=== PATIENT | male | born 1980 | race Caucasian/White ===

== ENCOUNTER → 2017-01-17 | Outpatient (CLI) | payer OTHER | LOC: KOH-I 08:07 | DX: M25.511 Pain in right shoulder (principal); M25.512 Pain in left shoulder; Z79.899 Other long term (current) drug therapy | CPT/HCPCS: 73030 ==

== ENCOUNTER 2021-05-17 16:23 | Emergency (ER) | payer OTHER ==
[2021-05-17] MEDS ORDERED: CEPHALEXIN500 M1 PO (17:39)
[2021-05-17] MEDS ORDERED: BACTRIM DS TAB1 EACH PO (17:39)
[2021-05-17] MEDS ORDERED: MOBIC15 MG PO (17:54)
== END 2021-05-17 18:30 | disposition home or self-care (01) ==
LOC: ER1 16:23
DX: L03.116 Cellulitis of left lower limb (principal); E11.9 Type 2 diabetes mellitus without complications; I10 Essential (primary) hypertension; Z88.1 Allergy status to other antibiotic agents; F17.210 Nicotine dependence, cigarettes, uncomplicated
CPT/HCPCS: 73590; 99283

== ENCOUNTER 2021-09-10 20:05 | Emergency (ER) | payer OTHER ==
[~2021-09-10 20:05] MED LIST: BACTRIM DS TAB1 EACH PO; CEPHALEXIN500 M1 PO; MOBIC15 MG PO
[2021-09-10 21:22] LABS: HEMOGLOBIN 15.9 gm/dl (14.0-17.5); RED BLOOD COUNT 5.68 M/UL (4.20-5.50); WHITE BLOOD COUNT 9.2 K/UL (4.5-11.0)
[2021-09-10 21:46] LABS: BUN/CREATININE RATIO 28 (0-10)
[2021-09-12 21:09] LABS: CHLAMYDIA TRACHOMATIS, NAA Negative (Negative); NEISSERIA GONORRHOEAE, NAA Negative (Negative)
== END 2021-09-10 21:17 | disposition home or self-care (01) ==
LOC: ER1 20:05
PROVIDERS: Physician Assistant Medical
DX: E11.65 Type 2 diabetes mellitus with hyperglycemia (principal); Z76.0 Encounter for issue of repeat prescription; B00.9 Herpesviral infection, unspecified; I10 Essential (primary) hypertension; F17.210 Nicotine dependence, cigarettes, uncomplicated; Z20.822 Contact with and (suspected) exposure to COVID-19
CPT/HCPCS: 80053; 81001; 82009; 82962; 85025; 99282